=== PATIENT | male | born 1960 | race Caucasian/White ===

== ENCOUNTER 2022-10-10 11:55 | Emergency (ER) | payer BC, OTHER ==
[~2022-10-10] VITALS: Ht 183 cm; Wt 107.0 kg
[2022-10-10] MEDS ORDERED: fentaNYL INJ 100 MCG/2 ML AMP ONE (12:10)
[2022-10-10] MEDS ORDERED: ONDANSETRON 4 MG/2 ML (SDV) Z0FRAN ONE (12:10)
[2022-10-10] MEDS ORDERED: fentaNYL INJ 100 MCG/2 ML AMP IVP PRN (12:15)
[2022-10-10] MEDS ORDERED: NS IV 1000 ML 1,000 ML IV SCH (12:15)
[2022-10-10] MEDS ORDERED: ONDANSETRON 4 MG/2 ML (SDV) Z0FRAN IVP ONE (12:15)
--- NOTE | 2022-10-10 12:15 | ED Upper Extremity ---
General Chief Complaint: Trauma POV Arrival Activation Stated Complaint: FALL FROM LADDER Source: patient, family Exam Limitations: no limitations History of Present Illness Date Seen by Provider: Oct 10, 2022 Time Seen by Provider: 12:05 Initial Comments Patient is a 62-year-old male who presents to the emergency department today chi ef complaint of left shoulder pain. He was up a ladder 10ft laying some piping, he fell off the ladder onto his left shoulder. States he did not hit his head, no LOC. He is SOB only from the pain in his left shoulder./ States his fingers in his left hand feel "numb". No neck pain. No chest pain. No abdominal pain. no nausea. no LE weakness, numbness or tingling. He has had prior left shoulder repair by Dr Negron and was scheduled for surgery this next Tuesday.. No recent illnesses. No other symptoms reported. He is not a smoker, no etoh. last oral intake was some black coffee with a "shot of milk" at about 4:30/5am. Onset: just prior to arrival Severity: severe Pain/Injury Location: left shoulder Method of Injury: fell Modifying Factors: Worse With Movement Allergies and Home Medications Allergies Coded Allergies: No Known Drug Allergies (Unverified , 10/10/22) Patient Home Medication List Home Medication List Reviewed: Yes Hydrocodone/Acetaminophen (Hydrocodone-Acetamin 5-325 mg) 5 Mg-325 Mg Tablet, 1 TAB PO Q6H PRN for PAIN-MODERATE (5-7) Prescribed by: SHAI JASSO on 10/10/22 1308 Review of Systems Constitutional: see HPI EENTM: no symptoms reported Respiratory: no symptoms reported Cardiovascular: no symptoms reported Gastrointestinal: no symptoms reported Genitourinary: no symptoms reported Musculoskeletal: joint pain (left shoulder) Skin: no symptoms reported Psychiatric/Neurological: Paresthesia (fingers "numb" to left hand) Physical Exam Vital Signs Vital Signs - First Documented Capillary Refill : Height, Weight, BMI Height: '" Weight: lbs. oz. kg; BMI Method: General Appearance: WD/WN, moderate distress HEENT: normal ENT inspection, other ((mallampati 3)) Neck: non-tender, full range of motion, normal inspection Cardiovascular: regular rate, rhythm Respiratory: chest non-tender, decreased breath sounds (left > right), other (tachypneic (due to pain)) Gastrointestinal: normal bowel sounds, non tender, soft Shoulder: asymmetry, bone tenderness, deformity, limited ROM, pain, soft tissue tenderness Elbow/Forearm: normal inspection, Left Wrist: Yes normal inspection, Yes no evidence of injury Hand: normal inspection, non-tender, Left Neurologic/Psychiatric: alert, other (anxious) Skin: normal color, warm/dry, other (no wounds/abrasions/lacerations) Procedures/Interventions Patient Education: Explained Benefits, Explained Risks, Pt. Ack. Understanding Agreement on procedure with pt: Yes Patient History: Heavy Snoring Breath Sounds per Auscultation: Clear Heart Sounds per Auscultation: Regular Airway Exam: Mouth opens >2 fingers, Neck Full Range of Motion Sedation Adminstration Time: 12:46 Total Time spent in CS 18 min 100mg propofol given, patient on ETCO2 monitoring; sats did drop briefly to 75% - O2 at 2L turned up to 10L with spontaneous resolution of transient hypoxia. traction/counter traction used to facilitate reduction; x1 attempt palpable reduction with anatomic reduction of the dislocation visualized. Re-examination Time: 13:08 Re-examination awake, alert and oriented Progress/Results/Core Measures Results/Orders My Orders Orders - SHAI JASSO MD Chest 1 View, Ap/Pa Only (10/10/22 12:11) Shoulder, Left, 3 Views (10/10/22 12:11) Ed Iv/Invasive Line Start (10/10/22 12:11) Ns Iv 1000 Ml (Sodium Chloride 0.9%) (10/10/22 12:15) Fentanyl Inj (Sublimaze Injection) (10/10/22 12:15) Ondansetron Injection (Zofran Injectio (10/10/22 12:15) Fentanyl Inj (Sublimaze Injection) (10/10/22 12:10) Ondansetron Injection (Zofran Injectio (10/10/22 12:10) Morphine Injection (Morphine Injection (10/10/22 12:34) Propofol Injection (Diprivan Injection) (10/10/22 12:45) Shoulder, Left, 2 Views (10/10/22 13:09) Medications Given in ED Current Medications Medications Dose Ordered Sig/Donny Route Start Time Stop Time Status Last Admin Dose Admin Fentanyl Citrate 100 mcg ONCE PRN IVP 10/10/22 12:15 10/10/22 12:12 100 MCG Ondansetron HCl 4 mg ONCE ONCE IVP 10/10/22 12:15 10/10/22 12:16 DC 10/10/22 12:12 4 MG Propofol 200 mg ONCE ONCE IV 10/10/22 12:45 10/10/22 12:46 DC 10/10/22 12:46 100 MG Vital Signs/I&O 10/10/22 10/10/22 10/10/22 11:55 11:55 12:45 Temp 37.1 37.1 Pulse 65 65 Resp 26 26 B/P (MAP) 124/51 (75) 124/51 (75) Pulse Ox 97 97 O2 Delivery Room Air Room Air Room Air Diagnostic Imaging Diagonstic Imaging: Xray Comments left shoulder xray 0 interpreted by me - anterior shoulder dislocation, no obvious fracture chest xray - interpreted by me - rotated; no obvious infiltrate; shoulder dislocation see. [facility], [place] NAME: JAIRO LOPEZ [facility] REC#: [id number] PT STATUS: REG ER : 1960 PHYSICIAN: SHAI JASSO MD ADMIT DATE: 10/10/22/ER Signed Date of Exam:10/10/22 SHOULDER, LEFT, 3 VIEWS EXAMINATION: Left shoulder radiograph EXAM DATE: 10/10/2022 12:27 PM COMPARISON: None available. HISTORY: Left shoulder pain after injury. TECHNIQUE: 3 views FINDINGS: There is anterior dislocation of the humeral head from the glenohumeral joint. There appears to be a Hill-Sachs deformity along the humeral head. No acute fracture is seen. The soft tissues are normal. IMPRESSION: 1. Anterior humeral dislocation with likely posterior Hill-Sachs deformity. Dictated by: Dictated on workstation # [id number] Dict: 10/10/22 1229 Trans: 10/10/22 1304 [id number] Interpreted by: SG WATTERS DO Electronically signed by: SG WATTERS DO 10/10/22 1304 Departure Impression Primary Impression: Dislocation of left shoulder joint Qualified Codes: S43.005A - Unspecified dislocation of left shoulder joint, initial encounter Additional Impression: Fall Qualified Codes: W19.XXXA - Unspecified fall, initial encounter Disposition: HOME, SELF-CARE Condition: Improved Departure-Patient Inst. Decision time for Depature: 13:01 Referrals: IBIS POWERS MD (PCP/Family) Primary Care Physician SHAYAN NEGRON MD Patient Instructions: Procedural Sedation, Adult ED, Shoulder Dislocation (DC) Add. Discharge Instructions: Please contact Dr Negron's office tomorrow and let them know you were seen in the ER and had a shoulder dislocation, he can advise you on whether or not you can still have surgery on Tuesday. Keep the sling in place until you see him in follow up. Over the counter Ibuprofen 3 pills (600mg) every 6 hours as needed for pain. Ice to the shoulder joint off and on the next 24-48 hours for swelling. Return to the Emergency Department for any new, concering or emergent complaints. Scripts Hydrocodone/Acetaminophen (Hydrocodone-Acetamin 5-325 mg) 5 Mg-325 Mg Tablet 1 TAB PO Q6H PRN for PAIN-MODERATE (5-7), #10 TAB Prov: SHAI JASSO MD 10/10/22 Work/School Note: Work Release Form Date Seen in the Emergency Department: Oct 10, 2022 Return to Work: Oct 13, 2022 Copy Copies To 1: SHAYAN NEGRON MD Copies To 2: IBIS POWERS MD, KATHRYN M MD Oct 10, 2022 12:15
[2022-10-10] MEDS ORDERED: morphine INJ 10 MG/ML 1ML (SYR OR VIAL) IVP STA (12:34)
--- NOTE | 2022-10-10 12:38 | Diagnostic Imaging Report ---
EXAMINATION: Left shoulder radiograph EXAM DATE: 10/10/2022 12:27 PM COMPARISON: None available. HISTORY: Left shoulder pain after injury. TECHNIQUE: 3 views FINDINGS: There is anterior dislocation of the humeral head from the glenohumeral joint. There appears to be a Hill-Sachs deformity along the humeral head. No acute fracture is seen. The soft tissues are normal. IMPRESSION: 1. Anterior humeral dislocation with likely posterior Hill-Sachs deformity. Dictated by: Dictated on workstation # [id number]
--- NOTE | 2022-10-10 12:39 | Diagnostic Imaging Report ---
EXAMINATION: Chest 1 view HISTORY: Chest injury. COMPARISON: None available. FINDINGS: Patient is rotated to the right. No edema or pneumonia. No pleural effusion or pneumothorax. Heart size is normal. Left shoulder appears to be dislocated. IMPRESSION: 1. Clear lungs. 2. Dislocated left shoulder. Dictated by: Dictated on workstation # [id number]
[2022-10-10] MEDS ORDERED: proPOfol 200 MG/20 ML (DIPRIVAN) VIAL IV ONE (12:45)
[2022-10-10] MEDS ORDERED: ACHD5005 PO (13:07)
[2022-10-10 13:58] VITALS: BP 128/70
--- NOTE | 2022-10-10 14:01 | Diagnostic Imaging Report ---
EXAMINATION: Left shoulder radiograph EXAM DATE: 10/10/2022 1:52 PM COMPARISON: None available. HISTORY: Left shoulder pain status post reduction TECHNIQUE: 2 views FINDINGS: There has been interval reduction of the left shoulder dislocation. Humeral head is situated within the glenohumeral joint. Redemonstrated likely posterior Hill-Sachs deformity. The joint spaces are normal. The soft tissues are normal. IMPRESSION: 1. Interval reduction of the left shoulder dislocation. No new acute osseous abnormality. Dictated by: Dictated on workstation # [id number]
== END 2022-10-10 13:58 | disposition home or self-care (01) ==
LOC: EDUNIT# 11:55 → ER 11:57
DX: S43.015A Anterior dislocation of left humerus, initial encounter (principal); Z28.310 Unvaccinated for COVID-19; W11.XXXA Fall on and from ladder, initial encounter
CPT/HCPCS: 23655; 71045; 73030; 93041